=== PATIENT | female | born 1945 | race Caucasian/White ===

== ENCOUNTER → 2025-02-18 09:12 | Outpatient (CLI) | payer MEDICARE, SELFPAY ==
--- NOTE | 2025-02-18 09:17 | DI.MRI.S_ITS ---
PROCEDURE: MR HIP LT WO/W CON
== END ==
LOC: MRI 09:16
PROVIDERS: Visit Provider Family Medicine
DX: S73.192A Other sprain of left hip, initial encounter (principal); M89.9 Disorder of bone, unspecified; M25.552 Pain in left hip
CPT/HCPCS: 73723; A9579